=== PATIENT | female | born 1985 | race American Indian/Alaskan Native ===

== ENCOUNTER 2018-03-17 01:09 | Emergency (ER) | payer SELFPAY ==
[2018-03-17 02:08] VITALS: BP 144/64
== END 2018-03-17 02:05 | disposition left against medical advice (07) ==
LOC: ED 01:09
DX: Z04.1 Encounter for examination and observation following transport accident (principal); Z53.21 Procedure and treatment not carried out due to patient leaving prior to being seen by health care provider; V89.2XXA Person injured in unspecified motor-vehicle accident, traffic, initial encounter; Y93.89 Activity, other specified; Y99.8 Other external cause status; Y92.488 Other paved roadways as the place of occurrence of the external cause

== ENCOUNTER 2018-03-17 04:10 | Emergency (ER) | payer OTHER, MEDICAID ==
[2018-03-17] MEDS ORDERED: MOTRIN PO ONE (04:50)
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
--- NOTE | 2018-03-17 05:55 | XRay Report ---
FINAL REPORT EXAM: XR SPINE LUMBOSACRAL 2-3V HISTORY: LOWER BACK PAIN. TECHNIQUE: A single frontal and two radiographs of the lumbar spine were obtained. No prior studies are available for comparison. FINDINGS: The vertebral bodies demonstrate normal height and morphology. There is no fracture or spondylolisthesis. There is suggestion of a very slight lumbar dextroscoliosis, which may be positional. The intervertebral disc heights are maintained. No other osseous abnormalities are identified. There is moderate residual stool in the colon. IMPRESSION: 1. No fracture or spondylolisthesis. 2. Very slight lumbar dextroscoliosis, which may be positional.
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
== END 2018-03-17 06:10 | disposition home or self-care (01) ==
LOC: ED 04:10
DX: M54.2 Cervicalgia (principal); R51 Headache; M54.5 Low back pain; F17.200 Nicotine dependence, unspecified, uncomplicated
CPT/HCPCS: 70450; 72100; 72125; 99284